=== PATIENT | female | born 1960 | race Caucasian/White ===

== ENCOUNTER → 2021-05-13 | Day surgery (SDC) | payer MEDICARE, OTHER ==
[~2021-05-13] MED LIST: ARMOUR THYROID60 MG PO; ATENOLOL50 MG PO; CYMBALTA60 MG PO; GABAPENTIN800 MG PO; JARDIANCE25 MG PO; METFORMIN HCL500 MG PO; METHADONE HCL10 MG PO; PRILOSEC OTC20 MG PO; WELLBUTRIN SR150 MG PO
== END | disposition home or self-care (01) ==
LOC: OR 08:11
DX: M47.816 Spondylosis without myelopathy or radiculopathy, lumbar region (principal); E11.9 Type 2 diabetes mellitus without complications; I10 Essential (primary) hypertension; I48.91 Unspecified atrial fibrillation; Z88.1 Allergy status to other antibiotic agents; Z79.84 Long term (current) use of oral hypoglycemic drugs; Z79.899 Other long term (current) drug therapy
CPT/HCPCS: 76000; 82962; J1040; Q9967